=== PATIENT | female | born 1980 | race Hispanic/Latino ===

== ENCOUNTER 2020-05-30 08:59 | Outpatient (CLI) | payer OTHER, SELFPAY ==
--- NOTE | ~2020-05-30 | MMUS_ITS ---
EXAMINATION: MM diagnostic niko BI w [place], US breast BI complete HISTORY: Breast pain and nipple discharge TECHNIQUE: Additional 3-D tomosynthesis images of the breasts were performed and synthetic 2-D images were generated. CAD analysis was submitted and interpreted. High resolution bilateral breast ultraso und was performed. COMPARISON: None BREAST PARENCHYMAL COMPOSITION: Breast composed of scattered areas of fibroglandular density. FINDINGS: MAMMOGRAPHIC FINDINGS: There are no suspicious masses, calcifications or architectural distortion in either breast to sugges t malignancy. ULTRASOUND: Bilateral breast ultrasound: Normal heterogeneous echotexture in the right breast without focal mass. In the left breast at 12:00, 1 cm from the nipple there is a 7 mm cyst. At 5:00 there is a 3 mm cyst. No suspicious masses to sug gest malignancy. IMPRESSION: 1. No evidence for malignancy in either breast. 2. Routine yearly screening mammogram and regular clinical breast examination are recommended. BI-RADS Category 2: Benign finding(s). Reviewed, dictated and finalized at location A. IMPRESSION: 1. No evidence for malignancy in either breast. 2. Routine yearly screening mammogram and regular clinical breast examination a re recommended. BI-RADS Category 2: Benign finding(s).
== END 2020-05-30 09:00 ==
LOC: MICIMG 09:00
PROVIDERS: PCP Internal Medicine; Visit Provider Clinical Nurse Specialist
DX: N64.52 Nipple discharge (principal); N64.4 Mastodynia
CPT/HCPCS: 76641; 77062; 77066; G0279

== ENCOUNTER 2021-08-26 15:26 | Emergency (ER) | payer OTHER, SELFPAY ==
--- NOTE | 2021-08-26 15:32 | ED.EYEPROB ---
HPI - Eye Problem General Chief complaint: Eye Problems Stated complaint: Eye Pain History of Present Illness HPI Narrative: This a 41-year-old female comes in complaining of left eye pain. Patient states that yesterday her eye started hurting patient denies rubbing her eye scratching her eye she is not a contact wearing patient. Patient states that the clear blue will start eyes started hurting and started watering patient denies any injury states that the she does not feel like anything was in her eye prior to this happening. Related Data Home Medications Medication Instructions Recorded Confirmed alprazolam 0.5 mg tablet 0.5 mg PO BID PRN 05/14/20 08/26/21 bupropion HCl 150 mg tablet,12 hr 150 mg PO DAILY 05/14/20 08/26/21 sustained-release fluoxetine 10 mg tablet 10 mg PO DAILY 05/14/20 08/26/21 lamotrigine 150 mg tablet 150 mg PO DAILY 05/14/20 08/26/21 loratadine 10 mg tablet 10 mg PO DAILY 05/14/20 08/26/21 Allergies Allergy/AdvReac Type Severity Reaction Status Date / Time No Known Allergies Allergy Verified 08/26/21 15:51 Review of Systems Review of Systems: At time as signature, I have reviewed and agree with nursing past medical, social, surgical and family history. Please see nursing chart for further information. There is no relevant family history pertinent to the presenting complaint. [facility] Past Medical History Medical History (Updated 08/27/21 @ 17:39 by Vesna Arguelles NP) Depression with anxiety Surgical History Surgical History (Updated 05/14/20 @ 12:22 by Doreen Galvin CMA) H/O dilation and curettage Family History Family History (Updated 06/08/19 @ 11:00 by DOCTOR UNKNOWN) Mother Patient's mother is in good health Hypertension Social History Social History Smoking status: Never smoker Alcohol intake: never Comments At time as signature, I have reviewed and agree with nursing past medical, social, surgical and family history. Please see nursing chart for further information. There is no relevant family history pertinent to the presenting complaint. Exam Narrative: GENERAL:Well-appearing, well-nourished, and in no acute distress. HEAD:Normocephalic, atraumatic. EYES: PERRLA left eye watering erythema some swelling erythema is in the conjunctivae eye exam completed patient has a corneal abrasion scratch on the cornea ENT: Nares clear, no rhinorrhea or epistaxis. Mucous membranes moist. NECK: Supple. CHEST: Clear to auscultation. No respiratory distress. HEART: Regular rate and rhythm. No murmur heard. Normal peripheral pulses. ABDOMEN: Soft, nontender, nondistended, normal active bowel sounds. EXTREMITIES: Normal range of motion. No edema. SKIN: Warm, dry, no rash. NEURO: No focal deficits. Alert and oriented x3. Course Vital Signs Vital signs: Vital Signs Temperature 98.3 F 08/26/21 15:38 Pulse Rate 91 08/26/21 15:38 Respiratory Rate 16 08/26/21 15:38 Blood Pressure 134/72 08/26/21 15:38 Pulse Oximetry 99 08/26/21 15:38 Temperature 98.3 F 08/26/21 15:38 Pulse Rate 91 08/26/21 15:38 Respiratory Rate 16 08/26/21 15:38 Blood Pressure 134/72 08/26/21 15:38 Pulse Oximetry 99 08/26/21 15:38 MDM - Eye Problem Differential Diagnosis Differential diagnosis: Likely corneal abrasion, conjunctivitis, acute iritis, periorbital cellulitis and subconjunctival hemorrhage Discharge Plan Discharge Clinical Impression: Corneal abrasion Patient Disposition: Home, Self-Care Condition: Stable Instructions: Antibiotic Form, Corneal Abrasion (ED) Additional Instructions: You may need to call your eye doctor and schedule appointment within the next week. Patient Language: Hebrew Prescriptions: New ofloxacin 0.3 % drops See Rx Instructions .ROUTE .COMPLEX Qty: 10 RF: 0 No Action loratadine [Claritin] 10 mg tablet 10 mg PO DAILY RF: 0 lamotrigine 150 mg tablet 150 mg PO DAILY RF: 0
[2021-08-26 15:38] VITALS: BP 134/72; PULSE 91; RESP 16; TEMP 36.8; O2SAT 99
== END 2021-08-26 16:40 | disposition home or self-care (01) ==
PROVIDERS: Emergency Provider Nurse Practitioner Family; PCP Internal Medicine
DX: S05.02XA Injury of conjunctiva and corneal abrasion without foreign body, left eye, initial encounter (principal); X58.XXXA Exposure to other specified factors, initial encounter; Y93.9 Activity, unspecified; F41.9 Anxiety disorder, unspecified; F31.9 Bipolar disorder, unspecified
CPT/HCPCS: 99213; A9270; G0463

== ENCOUNTER 2024-04-27 17:24 | Emergency (ER) | payer BC, SELFPAY ==
--- NOTE | ~2024-04-27 | XR_ITS ---
EXAMINATION: XR tibia fibula RT 2V DATE: 04/27/2024 18:09 INDICATION: Right lower leg injury. TECHNIQUE: 2 views of right tibia and fibula on 4 radiographs were obtained. COMPARISON: None. FINDINGS: Bone alignment is normal. No fracture. There is mild right knee osteoarthritis. No knee jason nt effusion. IMPRESSION: 1. Mild right knee osteoarthritis. Reviewed, dictated and finalized at location E.
[2024-04-27 17:34] VITALS: BP 127/75; PULSE 91; RESP 18; TEMP 36.7; O2SAT 97
--- NOTE | 2024-04-27 18:02 | ED.GENADULT ---
HPI - General Adult General Chief complaint: Skin/Abscess/Foreign Body Stated complaint: Left Leg Wound Time Seen by Provider: 04/27/24 18:04 Source: patient, RN notes reviewed and old records reviewed Mode of arrival: ambulatory Limitations: no limitations History of Present Illness HPI narrative: patient presents with complaints of right leg pain. She reports that couple of days ago she fell on the steps, she hit the riley of the right leg, there is extensive bruising. She states the area in the center which is red, broken skin, is the most painful part. She denies any fever, chills, sweats. She denies other injury or trauma. She has not done anything for her symptoms. She voices no other concerns or complaints at this time Related Data Home Medications Medication Instructions Recorded Confirmed bupropion HCl 150 mg tablet,12 hr 150 mg PO DAILY 05/14/20 04/27/24 sustained-release (Wellbutrin SR) lamotrigine 150 mg tablet 150 mg PO DAILY 05/14/20 04/27/24 ziprasidone HCl 40 mg capsule 40 mg PO HS 04/27/24 04/27/24 Allergies Allergy/AdvReac Type Severity Reaction Status Date / Time No Known Allergies Allergy Verified 04/27/24 18:00 Review of Systems Review of Systems: All systems reviewed & are unremarkable except as noted in HPI and below Constitutional: Constitutional: Reports no additional constitutional complaints ENT: Reports system reviewed and no additional complaints, except as documented Cardiovascular: Cardiovascular: Reports no additional cardiovascular complaints Respiratory: Respiratory: Reports no additional respiratory complaints Gastrointestinal: Gastrointestinal: Reports no additional gastrointestinal complaints Integumentary/Breasts: Comments: right leg bruising and redness PMFSH Past Medical History Medical History Depression with anxiety Surgical History Surgical History H/O dilation and curettage Family History Family History Mother Patient's mother is in good health Hypertension Social History Social History Smoking status: Never smoker Alcohol intake: never Comments At the time of my signature, I reviewed and agree with the nursing past medical, surgical, social, and family history. There is no relevant family history pertinent to the patient complaint. Exam Const: General: cooperative, no acute distress, alert and awake Orientation/consciousness: oriented to person, oriented to place and oriented to time HENMT: Head: normal to inspection Resp: Effort & Inspection: normal respiratory effort and able to speak in complete sentences Auscultation: clear to auscultation bilaterally, no crackles, no rales, no rhonchi and no wheezes Cardio: Palpation: normal PMI Rate: regular rate Rhythm: regular rhythm Heart sounds: S1 normal heart sound present and S2 normal heart sound present Skin: Full body images: 1. scattered bruising 2. redness and warmth Neuro: General: oriented to person, oriented to place and oriented to time Cranial nerves: Yes CN's II-XII intact bilaterally Psych: Appearance: grossly normal Thought process: Normal thought process present Insight: Good insight present (Psych) Judgement: Good judgement present (Psych) Course Course Level of Care: Express Care Visit Vital Signs Vital signs: Vital Signs Temperature 98.1 F 04/27/24 17:34 Pulse Rate 91 04/27/24 17:34 Respiratory Rate 18 04/27/24 17:34 Blood Pressure 127/75 04/27/24 17:34 Pulse Oximetry 97 04/27/24 17:34 Oxygen Delivery Room Air 04/27/24 17:34 Temperature 98.1 F 04/27/24 17:34 Pulse Rate 91 04/27/24 17:34 Respiratory Rate 18 04/27/24 17:34 Blood Pressure 127/75 04/27/24 17:34 Pulse Oximetry 97
== END 2024-04-27 18:45 | disposition home or self-care (01) ==
PROVIDERS: Emergency Provider Nurse Practitioner Family; PCP Internal Medicine
DX: L03.115 Cellulitis of right lower limb (principal); F41.8 Other specified anxiety disorders
CPT/HCPCS: 73590; 99213; G0463

== ENCOUNTER 2024-05-08 16:32 | Emergency (ER) | payer BC, SELFPAY ==
[2024-05-08 16:41] VITALS: BP 140/81; PULSE 80; RESP 18; TEMP 36.6; O2SAT 99
--- NOTE | 2024-05-08 17:03 | ED.SKABFB ---
HPI - Skin/Abscess/Foreign Bdy General Chief complaint: Skin/Abscess/Foreign Body Stated complaint: right leg has a sore Time Seen by Provider: 05/08/24 16:54 Source: patient and RN notes reviewed Mode of arrival: ambulatory Limitations: no limitations History of Present Illness HPI narrative: Patient presents today complaining of a sore to the anterior right lower leg. She was seen at [facility] after her injury on 04/27/2024, placed on Augmentin. States she finished her antibiotic yesterday. Reports that the wounds that she has on her leg and the redness surrounding them have slowly been improving. She has not been keeping the wounds covered. History of diabetes. Related Data Home Medications Medication Instructions Recorded Confirmed bupropion HCl 150 mg tablet,12 hr 150 mg PO DAILY 05/14/20 05/08/24 sustained-release (Wellbutrin SR) ziprasidone HCl 40 mg capsule 40 mg PO HS 04/27/24 05/08/24 fluoxetine 10 mg capsule 10 mg PO DAILY 05/08/24 05/08/24 Allergies Allergy/AdvReac Type Severity Reaction Status Date / Time No Known Allergies Allergy Verified 05/08/24 16:39 Review of Systems Review of Systems: CONSTITUTIONAL: Denies body aches, fever, chills, or sweats. EYES: Denies visual changes, redness, or discharge. ENT: Denies rhinorrhea, congestion, sore throat, or otalgia. CARDIOVASCULAR: Denies chest pain, palpitations, or edema. RESPIRATORY: Denies cough or dyspnea. GASTROINTESTINAL: Denies abdominal pain, nausea, vomiting, or diarrhea. GENITOURINARY: Denies dysuria or hematuria. SKIN: Denies rash, itching. + wounds and redness to the right lower leg MUSCULOSKELETAL: Denies back pain, joint pain, or myalgia. NEUROLOGIC: Denies headache, numbness, tingling, or weakness. PSYCH: Denies depression or anxiety. [facility] Past Medical History Medical History (Updated 05/08/24 @ 17:10 by Nargis Hardin, SON, ) Depression with anxiety Diabetes Surgical History Surgical History H/O dilation and curettage Family History Family History Mother Patient's mother is in good health Hypertension Social History Social History Smoking status: Never smoker Alcohol intake: never Comments At time of signature, I have reviewed and agree with nursing past medical, surgical, social and family history unless otherwise noted. Please see nursing chart for further information. There is no relevant family history pertinent to the presenting complaint Exam Narrative: GENERAL: Well-appearing, well-nourished, and in no acute distress. HEAD: Normocephalic, atraumatic. EYES: EOMI. No redness or drainage. Conjunctivae normal. ENT: Mucous membranes pink and moist. NECK: Normal AROM. CHEST: No respiratory distress. EXTREMITIES: Right lower le x 5 cm area of mild erythema with 2 0.5x0.5cm partial thickness wounds with dry yellow bases. No active drainage. Mildly tender to palpation. Some mild distal edema as well. SKIN: Warm, dry, no rash. Capillary refill normal. Normal skin turgor. NEURO: No focal deficits. Alert and oriented x3. Gait steady. PSYCH: Normal affect. No signs of depression or anxiety. Course Course Level of Care: Express Care Visit Vital Signs Vital signs: Vital Signs Temperature 97.8 F 05/08/24 16:41 Pulse Rate 80 05/08/24 16:41 Respiratory Rate 18 05/08/24 16:41 Blood Pressure 140/81 05/08/24 16:41 Pulse Oximetry 99 05/08/24 16:41 Oxygen Delivery Room Air 05/08/24 16:41 Temperature 97.8 F 05/08/24 16:41 Pulse Rate 80 05/08/24 16:41 Respiratory Rate 18 05/08/24 16:41 Blood Pressure 140/81 05/08/24 16:41 Pulse Oximetry 99 05/08/24 16:41 Oxygen Delivery Room Air 05/08/24 16:41 Reviewed MDM - Skin/Abscess/Foreign Bdy MDM Narrative Med
== END 2024-05-08 17:15 | disposition home or self-care (01) ==
PROVIDERS: Emergency Provider Nurse Practitioner
DX: S81.801D Unspecified open wound, right lower leg, subsequent encounter (principal); L03.115 Cellulitis of right lower limb; X58.XXXD Exposure to other specified factors, subsequent encounter; E11.9 Type 2 diabetes mellitus without complications; F41.9 Anxiety disorder, unspecified; F32.A Depression, unspecified
CPT/HCPCS: 99213; G0463

== ENCOUNTER 2025-07-27 16:05 | Emergency (ER) | payer BC, SELFPAY ==
--- NOTE | ~2025-07-27 | XR_ITS ---
EXAMINATION: XR abdomen obstructive series, 07/27/2025 17:13 CDT HISTORY: abdominal pain all over, today , last bm today COMPARISON: No comparisons available. Technique: 3 view. Findings: Moderate fecal content, no dilated bowel loops No free air. No abnormal calcifications No acute osseous abnormality. Impression: 1. No acute abnormality. Reviewed, dictated and finalized at location P. Impression: 1. No acute abnormality.
[2025-07-27 16:13] VITALS: BP 133/93; PULSE 61; RESP 22; TEMP 36.6; O2SAT 100
--- NOTE | 2025-07-27 16:51 | ED_ITS ---
HPI - General Adult General Chief complaint: Urogenital-Female Stated complaint: abdomen pain Time Seen by Provider: 07/27/25 16:40 Source: patient, RN notes reviewed and old records reviewed Mode of arrival: ambulatory Limitations: no limitations History of Present Illness HPI narrative: 45 year old female who presents to [facility] care with complaints of starting about 1100 today pain in her left lower abdomen having only small loose green colored stool and only able to urinate minute amounts of urine. Patient reports that she had diarrhea yesterday and did urinate yesterday. Patient reports that she feels nauseated and had small yellowish emesis today, has been able to drink fluids since and has not had any further emesis. Patient reports that she can't eat. Patient states that she did take stool softener today, has not taken any OTC medication for her discomfort. Patient reports history of UTI's, reports last menses about a year ago. Patient reports normal bowel movement day before yesterday. MD complaint: abdominal pain LLQ,difficulty urinating and passing stool, nausea can't eat Onset (ago): hour(s) (1100 today) Location: abdomen (LLQ) Radiation: non-radiation Severity scale (1-10): 8 Quality: aching and sharp Pain Consistency: colicky Treatments prior to arrival: none Related Data Home Medications ?Medication ?Instructions ?Recorded ?Confirmed ?Last Taken ?Type bupropion HCl 150 mg tablet,12 hr 150 mg PO DAILY 04/1805/08/24 08/26/21 History sustained-release (Wellbutrin SR) 150 MG fluoxetine 10 mg capsule 10 mg PO DAILY 05/08/2404/18 Unknown History ziprasidone HCl 20 mg capsule mg PO 07/27/25 Unknown History Allergies Allergy/AdvReac Type Severity Reaction Status Date / Time No Known Allergies Allergy Verified 07/27/25 16:07 Review of Systems Review of Systems: CONSTITUTIONAL: Denies fever, chills, or sweats. EYES: Denies visual changes, redness, or discharge. ENT: Denies rhinorrhea, congestion, sore throat, or otalgia. CARDIOVASCULAR: Denies chest pain, palpitations, or edema. RESPIRATORY: Denies cough or dyspnea. GASTROINTESTINAL: Reports LLQ abdominal pain, nausea, vomiting, or diarrhea. GENITOURINARY: Denies dysuria or hematuria. SKIN: Denies rash or itching. MUSCULOSKELETAL: Denies back pain, joint pain, or myalgia. NEUROLOGIC: Denies headache, numbness, or weakness. PSYCHIATRIC: Reports anxiety or depression. All systems reviewed & are unremarkable except as noted in HPI and below PMFSH Past Medical History Medical History (Updated 07/28/25 @ 14:01 by Kasie Spencer NP) UTI (urinary tract infection) Diabetes Depression with anxiety Surgical History Surgical History (Updated 07/28/25 @ 14:01 by Kasie Spencer NP) Previous section H/O dilation and curettage Family History Family History Mother Patient's mother is in good health Hypertension Social History Social History Smoking status: Never smoker Alcohol intake: never Comments At time of signature, agree with nursing past medical, surgical, social and family history. There is no relevant family history pertinent to the presenting complaint Exam Narrative: GENERAL: Well-appearing, well-nourished, and in no acute distress. HEAD: Normocephalic, atraumatic. EYES: PERRLA and EOMI. ENT: Nares clear, no rhinorrhea or epistaxis. Mucous membranes moist.TM's normal throat pink with no swelling NECK: Supple.no lymphadenopathy CHEST: Clear to auscultation. No respiratory distress.SAO2 100% on room air HEART: Regular rate and rhythm. No murmur heard. Normal peripheral pulses. ABDOMEN: Soft, mildly tender to palpation in left lower quadrant non radiating, no McBurney point tenderness nondistended, hypoactive active bowel sounds. EXTREMITIES: Normal range of motion. No edema., SKIN: Warm, dry, no rash. NEURO: No focal deficits. Alert and oriented x3. Course Course Emergency Course: Patient is aware of diagnosis, understands and agrees to treatment plan.? Anticipatory guidance given.? Patient agrees to follow-up as directed and is aware of reasons to seek care at the emergency department. Portions of this record may have been created with voice recognition software Level of Care: Express Care Visit Vital Signs Vital signs: Vital Signs Temperature 36.6 C 07/27/25 16:13 Pulse Rate 61 07/27/25 16:13 Respiratory Rate 22 H 07/27/25 16:13 Blood Pressure 133/93 H 07/27/25 16:13 Pulse Oximetry 100 07/27/25 16:13 Oxygen Delivery Room Air 07/27/25 16:13 Temperature 36.6 C 07/27/25 16:13 Pulse Rate 61 07/27/25 16:13 Respiratory Rate 22 H 07/27/25 16:13 Blood Pressure 133/93 H 07/27/25 16:13 Pulse Oximetry 100 07/27/25 16:13 Oxygen Delivery Room Air 07/27/25 16:13 reviewed Medical Decision Making MDM Narrative Medical decision making narrative: Exam findings and imaging show no acute concerns or changes; patient is non- toxic appearing and is in no distress.? Patient is appropriate for outpatient treatment and follow-up Differential Diagnosis Differential Diagnosis: abdominal pain LLQ, UTI, difficulty urinating, constipation, Medical Records Medical records reviewed: Yes I reviewed the external patient's medical records. Vital Signs Vital Signs: Vital Signs Temperature 36.6 C 07/27/25 16:13 Pulse Rate 61 07/27/25 16:13 Respiratory Rate 22 H 07/27/25 16:13 Blood Pressure 133/93 H 07/27/25 16:13 Pulse Oximetry 100 07/27/25 16:13 Oxygen Delivery Room Air 07/27/25 16:13 Temperature 36.6 C 07/27/25 16:13 Pulse Rate 61 07/27/25 16:13 Respiratory Rate 22 H 07/27/25 16:13 Blood Pressure 133/93 H 07/27/25 16:13 Pulse Oximetry 100 07/27/25 16:13 Oxygen Delivery Room Air 07/27/25 16:13 reviewed Lab Data Lab results reviewed: Yes I reviewed the patient's lab results. Lab results narrative: urine dip reviewed and culture sent, urine dark and cloudy Labs: Lab Results 07/27/25 Range/Units 17:31 POC Urine Color Dark POC Urine Clarity Cloudy POC Urine pH 6.0 POC Ur Specif [place] 1.030 POC Urine Protein 1+ (Negative) POC Ur Glucose (UA) Negative (Negative) POC Urine Ketones Negative (Negative) POC Urine Blood 3+ (Negative) POC Urine Nitrite Negative (Negative) POC Urine Bilirubin Negative (Negative) POC Urine Urobilinogen 0.2 POC U Leukocyte Esteras Negative (Negative) Imaging Data Attestation: I personally reviewed and interpreted this imaging study as follows: My impression: no free air, no acute abnormality, moderate fecal content, no dilated bowel loops Radiologist's impression: [facility] [address] [place] [address] XRay Report Signed Patient: Mitzi Jules : 1980 MR#: [id number] Age: 45 Acct:[id number] Loc: [facility] ADM Date: 07/27/[address]: Ordering Physician: Kasie Spencer APRN Date of Service: 07/27/25 Procedure(s): XR abdomen obstructive series Accession Number(s): [id number] cc: Kasie Spencer APRN; UNKNOWN,DOCTOR~ EXAMINATION: XR abdomen obstructive series, 07/27/2025 17:13 CDT HISTORY: abdominal pain all over, today , last bm today COMPARISON: No comparisons available. Technique: 3 view. Findings: Moderate fecal content, no dilated bowel loops No free air. No abnormal calcifications No acute osseous abnormality. Impression: 1. No acute abnormality. Reviewed, dictated and finalized at location P. Please be advised this is a medical document. It is intended for [id number] communication. It is written in medical language and may contain unfamiliar abbreviations or verbiage. Medical documents are intended to carry relevant information, facts as evident, and the clinical opinion of the practitioner at the time of the encounter. This report may have been done utilizing a voice recognition system. Attempts have been made to correct errors. However, there may be uncorrected grammatical, spelling, and recognition errors present. The file time of this note does not necessarily represent the time of service. Dictated By: Clint Esquivel MD 07/27/25 1733 Signed By: <Electronically signed by Clint Esquivel MD in OV> Critical Care Time Critical Care Time Critical Care Time: No Discharge Plan Discharge Clinical Impression: Urinary tract infection symptoms UTI (urinary tract infection) Qualifiers: Urinary tract infection type: site unspecified Hematuria presence: with hematuria Qualified Code(s): N39.0 - Urinary tract infection, site not specified Constipation Qualifiers: Constipation type: unspecified constipation type Qualified Code(s): K59.00 - Constipation, unspecified Patient Disposition: Home Condition: Stable Instructions: Antibiotic Form, Urinary Tract Infection in Women (ED), Abdominal Pain (ED) Additional Instructions: Increase fluids especially cranberry juice and water Avoid caffeine and carbonated beverages Antibiotic as directed Tylenol/ibuprofen for pain or fever Follow-up with her primary care provider if further problems or concerns Recheck if you have fever over 101, nausea and vomiting. If your symptoms persist, change or worsen significantly before you can contact your personal physician then please, without delay, go to the emergency department for further evaluation. Follow-up with PCP in 7-10 days or sooner if needed Follow up with PCP soon in regards to your blood pressure which is elevated above threshold for referral. Blood pressure above 120/80 may indicate pre-hype rtension. 133/93 If any increased pain to abdomen go directly to the emergency room Patient Language: Welsh Prescriptions: New amoxicillin-pot clavulanate 875-125 mg tablet 1 tablet PO Q12H Qty: 14 0RF No Action fluoxetine 10 mg capsule 10 mg PO DAILY ziprasidone HCl 20 mg capsule PO bupropion HCl [Wellbutrin SR] 150 mg tablet sustained-release 12 hr 150 mg PO DAILY Follow-up/Referrals: UNKNOWN,DOCTOR [Primary Care Provider] Time of Disposition: 17:59 Quality [place] Coma Scale Eyes: Open Verbal: Oriented and Alert Motor: Follows Commands [place] Coma Total Score: 15
[2025-07-27 17:34] LABS: EDUAAPPEAR Cloudy; EDUABILI Negative (Negative); EDUABLOOD 3+ (Negative); EDUACOLOR1 Dark; EDUAGLUCOSE Negative (Negative); EDUAKETONE Negative (Negative); EDUALEUKO Negative (Negative); EDUANITRATE Negative (Negative); EDUAPH 6.0; EDUAPROTEIN 1+ (Negative); EDUASPGRAVITY 1.030; EDUAUROBILI 0.2
== END 2025-07-27 18:05 | disposition home or self-care (01) ==
PROVIDERS: Emergency Provider Registered Nurse
DX: N39.0 Urinary tract infection, site not specified (principal); K59.00 Constipation, unspecified; E11.9 Type 2 diabetes mellitus without complications; F41.8 Other specified anxiety disorders
CPT/HCPCS: 74019; 81003; 87086; 99213; G0463